=== PATIENT | male | born 1960 | race Caucasian/White ===

== ENCOUNTER 2025-05-11 07:27 | Emergency (ER) | payer MEDICAID, SELFPAY ==
[2025-05-11 07:42] VITALS: BP 130/66; PULSE 58; RESP 16; TEMP 36.8; O2SAT 96; BMI 31.0
--- NOTE | 2025-05-11 07:49 | EDNOTE_ITS ---
<Statement entered by Mica Armijo MD - 05/22/25 06:31> As co-signing physician, I was present and available for consult prn. I concur with the plan and care as documented by the midlevel provider. ED Skin Abcess FB-RME/HPI General Chief complaint: Animal Bite Stated complaint: LARGE BUG BITE R) SIDE Time Seen by Provider: 05/11/25 07:48 Arrival date/time: 05/11/25 07:27 64-year-old male presents to the emergency department for complaint of multiple insect bites patient reports erythema to the right side of his chest concerning for infection Limitations: no limitations Related Data Previous Rx's ?Medication ?Instructions ?Recorded hydrocodone 5 mg-acetaminophen 325 1 tab PO BID PRN pa in #10 tabs 09/10/ mg tablet clindamycin HCl 300 mg capsule 300 mg PO TID 7 days #2 1 caps 05/11/25 diphenhydramine HCl 25 mg capsule 25 mg PO Q8H PRN all ergic symptoms 05/11/25 (Benadryl) #30 caps prednisone 10 mg tablet 30 mg (3 x 10 mg) PO BID 3 d ays 05/11/25 #18 tabs Allergies Allergy/AdvReac Type Severity Reaction Status Date / Time Penicillins Allergy Intermediate Swelling Verified 05/11/25 07:31 of Lip/Tongue/Throat Review of Systems Review of Systems Systems Reviewed: All systems reviewed, normal except as documented Constitutional Constitutional: Reports system reviewed and no additional complaints, except as documented, Denies fever(s) and Denies headache(s) Eyes Eyes: Reports system reviewed and no additional complaints, except as documented and Denies blurry vision ENT Ears, Nose, Mouth, and Throat: Reports system reviewed and no additional complaints, except as documented, Denies headache(s), Denies nasal congestion and Denies nasal discharge Cardiovascular Cardiovascular: Reports system reviewed and no additional complaints, except as documented, Denies chest pain and Denies dyspnea Respiratory Respiratory: Reports system reviewed and no additional complaints, except as documented, Denies chest congestion, Denies cough and Denies dyspnea Gastrointestinal Gastrointestinal: Reports system reviewed and no additional complaints, except as documented and Denies abdominal pain Integumentary/Breasts Skin/Breast: Reports system reviewed and no additional complaints, except as documented, Denies rash and Reports other (Erythema chest, insect bites) Neurologic Neurologic: Reports system reviewed and no additional complaints, except as documented, Reports as per HPI and Denies headache(s) Past Medical History Social History SMOKING STATUS: Current every day smoker ED Exam General Limitations: Present no limitations General appearance: Present alert and in no apparent distress Head Head exam: Present atraumatic Eye Eye exam: Present normal appearance, PERRL and EOMI ENT ENT exam: Present normal exam, normal oropharynx and mucous membranes moist Neck Neck exam: Present normal inspection, full ROM and trachea midline Chest Chest inspection: Present normal inspection and symmetric chest wall rise Respiratory Respiratory exam: Present normal lung sounds bilaterally Cardiovascular Cardiovascular exam: Present regular rate, normal rhythm and normal heart sounds Abdominal Exam Abdominal exam: Present soft and normal bowel sounds Extremities Exam Extremities exam: Present normal inspection and full ROM Back Exam Back exam: Present normal inspection and full ROM Neurological Exam Neurological exam: Present alert, oriented X3 and CN II-XII intact Psychiatric Psychiatric exam: Present normal affect and normal mood Skin Skin exam: Present warm, dry and other (Erythema chest, insect bites) Course Quality Measures none Orders Category Date Time Status Clindamycin Vial [Cleocin vial] Med 05/11/25 07:48 Discontinued 600 mg IM X1 ONE Dexamethasone Inj [Decadron Inj] Med 05/11/25 07:48 Discontinued 10 mg PO X1 ONE DiphenhydrAMINE [Benadryl] Med 05/11/25 07:48 Discontinued 25 mg PO X1 ONE Vital Signs Vital signs: Vital Signs Temperature 98.2 F 05/11/25 07:42 Pulse Rate 58 L 05/11/25 07:42 Respiratory Rate 16 05/11/25 07:42 Blood Pressure 130/66 05/11/25 07:42 Pulse Oximetry (%) 96 05/11/25 07:42 Oxygen Delivery Method Room Air 05/11/25 07:42 O2 saturation 96% room air within normal limits Skin / Abscess / Foreign Body MDM Narrative MDM Narrative:: 64-year-old male presents to the emergency department for complaint of multiple insect bites patient reports erythema to the right side of his chest concerning for infection Clinically patient well-appearing does not appear ill or toxic in no acute distress Patient afebrile nontoxic in appearance Patient given antibiotics steroids and Benadryl Patient discharged home at this time Patient discharged home in no distress to follow-up with primary care doctor in the next 24 to 48 hours and for any worsening symptoms to return to the ER immediately Patient data External records reviewed:: [facility] previous records Clinical information provided by:: patient Social determinants that could affect healthcare access:: none Patient has the following chronic illnesses:: None How is presenting disease/condition affected by chronic disease/condition?: uneffected by Evaluation data The following diagnostics were reviewed and interpreted by me:: other (specify) (na ) Lab and/or radiology exams considered but not ordered:: Considered not ordered Interpretation Summary: N/A Medications / Prescriptions Medications or Prescriptions considered but not ordered:: Given Medication administrations:: Medication Administration History Discontinued Medications Clindamycin Phosphate (Clindamycin Phos Inj 150 Mg/Ml Vial 6 Ml) 600 mg IM X1 ONE Stop: 05/11/25 07:49 Last Admin: 05/11/25 08:01 Dose: 600 mg Documented By: MARYELLEN Dexamethasone Sodium Phosphate (Dexamethasone Sod Phos Inj 10 Mg/Ml Vial) 10 mg PO X1 ONE Stop: 05/11/25 07:49 Last Admin: 05/11/25 08:01 Dose: 10 mg Documented By: MARYELLEN Diphenhydramine HCl (Diphenhydramine 25 Mg Capsule) 25 mg PO X1 ONE Stop: 05/11/25 07:49 Last Admin: 05/11/25 08:00 Dose: 25 mg Documented By: MARYELLEN Given Consultations Consultation(s) initiated? (list below): No Diagnosis Skin/Abscess Differential Diagnosis: abscess of skin or subcutaneous tissue and cellulitis Most likely diagnosis given after review of the tests above:: Cellulitis, cellulitis Admission Indicated Admission indicated?: not indicated Admission Request Was there a request for admission?: No Disposition Plan Disposition Plan: Discharge Discharge Attestation Discharge Attestation: The patient and all family members were given an opportunity to ask questions and understood the discharge instructions. Discharge instructions specifically effects, indications for sooner follow up or return to the emergency department, and the expected course of current diagnosis. Patient condition: Stable Discharge Plan Plan Patient Disposition: HOME (Self Care) Discharge Disposition comment: Stable Prescriptions/Referrals Prescriptions/Med Rec: New clindamycin HCl 300 mg capsule 300 mg PO TID 7 Days Qty: 21 0RF diphenhydramine HCl [Benadryl] 25 mg capsule 25 mg PO Q8H PRN (Reason: allergic symptoms) Qty: 30 0RF prednisone 10 mg tablet 30 mg PO BID 3 Days Qty: 18 0RF No Action hydrocodone-acetaminophen 5-325 mg tablet 1 tab PO BID MDD 10 PRN (Reason: pain) Qty: 10 0RF Problem List Clinical Impression: Insect bite Patient/Caregiver Discharge Instructions Education Materials: ED Insect Bite Additional Instructions: Please follow up with your primary care doctor in the next 24-48hrs for any worsening symptoms return here immediately Print Language: Emirati Stand Alone Forms: Michelle Award Info., Patient Portal Info Letter PA/PLANT P[employer] Supervising Physician PA/PLANT P[employer]ER Supervising Physician: dr armijo
[2025-05-11] MEDS: DEXAMETHASONE SOD PHOS INJ 10 MG/ML VIAL PO (08:01)
[2025-05-11] MEDS: CLINDAMYCIN PHOS INJ 150 MG/ML VIAL 6 ML 600 MG IM (08:01)
== END 2025-05-11 08:10 | disposition home or self-care (01) ==
LOC: SERX 08:15
PROVIDERS: Emergency Provider Emergency Medicine
DX: S20.361A Insect bite (nonvenomous) of right front wall of thorax, initial encounter (principal); W57.XXXA Bitten or stung by nonvenomous insect and other nonvenomous arthropods, initial encounter
CPT/HCPCS: 96372; 99282; J0736; J1100; A9270